=== PATIENT | female | born 1950 | race Caucasian/White ===

== ENCOUNTER → 2016-10-26 | Outpatient (CLI) | payer OTHER ==
[~2016-10-26] MED LIST: ACYCLOVIR800 MG PO; AMOXICILLIN500 M2 PO; ASMANEX TW110 MCG/AC INH; AZMANEX; CELEXA20 MG; CIPRO500 MG PO; DAILY VITE1 TA1; DAYPRO600 M1 PO; DOXYCYCLINE MO100 MG; FLEXERIL10 MG PO; IBUPROFEN800 MG; KEFLEX500 MG PO; METFORMIN500 MG; METFORMIN500 MG PO; METOCLOPRAMIDE H5 M1 PO; MOTRIN800 MG PO; OYSTER SHELL; PREDNISONE20 M1 PO; PROAIR HFA0.09 MG/AC; Phenergan25 MG PO; ROBAXIN750 MG PO; ROBITUSSIN DM 105 ML PO; SENNA PLUS 50 M1 TAB; SIMVASTATIN20 MG; SINGULAIR10 MG; TRAMADOL HCL50 MG PO; TYLENOL EXTRA500 M1; VERAPAMIL ER240 MG; VICODIN 5/500 505 MG PO; VITAMIN D32000 I1; VOLTAREN50 M1 PO; XANAX0.25 MG; XANAX0.25 MG PO; ZITHROMAX Z PA250 MG PO; [UNRECOGNIZED DRUG - CODE]
== END | disposition home or self-care (01) ==
LOC: RAD 15:32
DX: M81.0 Age-related osteoporosis without current pathological fracture (principal); M79.642 Pain in left hand

== ENCOUNTER → 2016-12-31 | Outpatient (CLI) | payer OTHER | END | disposition home or self-care (01) | LOC: MAMMO 08:09 | DX: Z12.31 Encounter for screening mammogram for malignant neoplasm of breast (principal) ==

== ENCOUNTER → 2017-04-16 | Outpatient (CLI) | payer OTHER | END | disposition home or self-care (01) | LOC: RAD 15:38 | DX: M25.561 Pain in right knee (principal) ==

== ENCOUNTER 2017-10-02 20:37 | Emergency (ER) | payer OTHER ==
[~2017-10-02] VITALS: Ht 160 cm; Wt 68.0 kg
[2017-10-02] MEDS ORDERED: ROBAXIN500 M1 PO (22:40)
[2017-10-02] MEDS ORDERED: MEDROL DOSEPAK4 MG PO (22:40)
== END 2017-10-02 22:39 | disposition home or self-care (01) ==
LOC: ED 20:37
DX: M50.31 Other cervical disc degeneration, high cervical region (principal); Z87.442 Personal history of urinary calculi; Z90.49 Acquired absence of other specified parts of digestive tract; Z88.0 Allergy status to penicillin; Z88.2 Allergy status to sulfonamides; Z79.899 Other long term (current) drug therapy

== ENCOUNTER → 2018-01-02 | Outpatient (CLI) | payer OTHER ==
[~2018-01-02] MED LIST changes: +MEDROL DOSEPAK4 MG PO; +ROBAXIN500 M1 PO
== END | disposition home or self-care (01) ==
LOC: MAMMO 12-18 07:20
DX: Z12.31 Encounter for screening mammogram for malignant neoplasm of breast (principal)

== ENCOUNTER → 2018-11-04 | Outpatient (CLI) | payer OTHER ==
[~2018-11-04] MED LIST changes: +BAYER ASPIRIN C81 MG PO; +LIPITOR20 MG PO
== END | disposition home or self-care (01) ==
LOC: US 14:27
DX: N94.9 Unspecified condition associated with female genital organs and menstrual cycle (principal)

== ENCOUNTER 2019-11-10 22:41 | Emergency (ER) | payer OTHER ==
[~2019-11-10] VITALS: Ht 160 cm; Wt 63.5 kg
== END 2019-11-11 00:30 | disposition home or self-care (01) ==
LOC: ED 22:41
DX: S62.20 Unspecified fracture of first metacarpal bone (principal); J45.909 Unspecified asthma, uncomplicated; E11.9 Type 2 diabetes mellitus without complications; I10 Essential (primary) hypertension; E78.00 Pure hypercholesterolemia, unspecified; K21.9 Gastro-esophageal reflux disease without esophagitis; Z88.0 Allergy status to penicillin; Z88.2 Allergy status to sulfonamides; Z91.013 Allergy to seafood; Z91.040 Latex allergy status; Z79.899 Other long term (current) drug therapy; Z79.82 Long term (current) use of aspirin; Z90.49 Acquired absence of other specified parts of digestive tract; Z87.442 Personal history of urinary calculi; X58.XXXS Exposure to other specified factors, sequela

== ENCOUNTER → 2019-11-19 | Outpatient (CLI) | payer OTHER | END | disposition home or self-care (01) | LOC: MAMMO 09:46 | DX: Z12.31 Encounter for screening mammogram for malignant neoplasm of breast (principal) ==

== ENCOUNTER 2019-12-11 23:07 | Emergency (ER) | payer OTHER ==
[~2019-12-11] VITALS: Ht 160 cm; Wt 63.5 kg
[2019-12-12] MEDS ORDERED: Motrin,Rufen400 MG PO (00:39)
[2019-12-12] MEDS ORDERED: CYCLOBENZAPRINE5 M3 PO (00:39)
== END 2019-12-12 00:59 | disposition home or self-care (01) ==
LOC: ED 23:07
DX: S39.012A Strain of muscle, fascia and tendon of lower back, initial encounter (principal); J45.909 Unspecified asthma, uncomplicated; I10 Essential (primary) hypertension; E11.9 Type 2 diabetes mellitus without complications; E78.00 Pure hypercholesterolemia, unspecified; K21.9 Gastro-esophageal reflux disease without esophagitis; Z88.0 Allergy status to penicillin; Z88.2 Allergy status to sulfonamides; Z91.013 Allergy to seafood; Z91.040 Latex allergy status; Z79.899 Other long term (current) drug therapy; Z79.82 Long term (current) use of aspirin; Z90.49 Acquired absence of other specified parts of digestive tract; X50.0XXA Overexertion from strenuous movement or load, initial encounter; Y93.89 Activity, other specified; Y92.69 Other specified industrial and construction area as the place of occurrence of the external cause; Y99.8 Other external cause status

== ENCOUNTER → 2020-05-06 | Outpatient (CLI) | payer OTHER ==
[~2020-05-06] MED LIST changes: +CYCLOBENZAPRINE5 M3 PO; +Motrin,Rufen400 MG PO
== END | disposition home or self-care (01) ==
LOC: US 15:00
DX: M79.89 Other specified soft tissue disorders (principal)

== ENCOUNTER 2020-07-13 15:21 | Emergency (ER) | payer OTHER ==
[~2020-07-13] VITALS: Ht 162.5 cm; Wt 66.2 kg
[2020-07-13] MEDS ORDERED: IBUPROFEN600 MG PO (15:55)
[2020-07-13] MEDS ORDERED: DOXYCYCLINE100 M3 PO (15:55)
== END 2020-07-13 16:15 | disposition home or self-care (01) ==
LOC: ED 15:21
DX: L02.11 Cutaneous abscess of neck (principal); Z88.0 Allergy status to penicillin; Z88.2 Allergy status to sulfonamides; Z91.013 Allergy to seafood; Z91.040 Latex allergy status; Z79.899 Other long term (current) drug therapy; Z79.82 Long term (current) use of aspirin

== ENCOUNTER → 2021-02-16 | Outpatient (CLI) | payer OTHER ==
[~2021-02-16] MED LIST changes: +DOXYCYCLINE100 M3 PO; +IBUPROFEN600 MG PO
== END | disposition home or self-care (01) ==
LOC: MAMMO 11:30
PROVIDERS: ATTEND Internal Medicine Nephrology
DX: Z12.31 Encounter for screening mammogram for malignant neoplasm of breast (principal); N81.89 Other female genital prolapse

== ENCOUNTER → 2021-03-09 | Outpatient (CLI) | payer OTHER ==
[~2021-03-09] MED LIST changes: +BUDESONIDE-FO10.2 G1 INH; -CELEXA20 MG; +CELEXA20 MG PO; +GLUCOPHAGE500 M1 PO; +HYDROCODONE-AC1 EAC1 PO; -METFORMIN500 MG; +OMEPRAZOLE20 M2 PO; +OS-CAL 500+D31 EACH PO; +PROVENTIL HFA6.7 GM INH; +SENNA-S 8.6-501 EACH PO; +SINGULAIR10 M1 PO; -SINGULAIR10 MG; +VERAPAMIL HCL120 M1 PO; -VITAMIN D32000 I1; +VITAMIN D350 MCG PO
[2021-03-09 17:43] LABS: BASO % 0.5 % (0.0-1.0); EOS # 0.1 10*3/uL (0.0-0.4); EOS % 1.8 % (1.0-4.0); HEMATOCRIT 39.6 % (37.0-47.0); LYMPH % 38.6 % (27.0-41.0); MEAN CELL VOLUME 91.5 fl (81.0-99.0); MEAN CORPUSCULAR HGB 29.3 pg (27.0-31.0); MEAN CORPUSCULAR HGB CONC 32.1 g/dl (33.0-37.0); MEAN PLATELET VOLUME 8.5 fl (9.6-12.3); MONO # 0.8 10*3/uL (0.1-1.0); MONO % 10.1 % (3.0-9.0); NEUT # 3.7 10*3/uL (2.3-7.9); NEUT % 48.9 % (47.0-73.0); PLATELET COUNT AUTOMATED 207 10*3/uL (130-400); RED BLOOD COUNT 4.33 10*6/uL (4.10-5.10); WHITE BLOOD COUNT 7.7 10*3/uL (4.8-10.8)
[2021-03-09 17:44] LABS: BILIRUBIN Negative (Negative); BLOOD Negative (Negative); CLARITY Clear (Clear); COLOR Yellow (Yellow); GLUCOSE Negative (Negative); KETONE Negative (Negative); LEUKO ESTERASE 1+ (Negative); NITRITE Negative (Negative); PH 6.5 (4.5-8.0); SPECIFIC GRAVITY <= 1.005 (1.001-1.030); UROBILINOGEN 0.2 E.U./dl (0.0-1.0)
[2021-03-09 18:12] LABS: ALBUMIN 3.7 gm/dl (3.1-4.5); ALKALINE PHOSPHATASE 98 U/L (45-117); BUN 15 mg/dl (7-24); CHLORIDE 103 mmol/L (98-107); CREATININE 0.63 mg/dL (0.55-1.02); SGOT/AST 18 IU/L (3-35); SGPT/ALT 19 U/L (12-78); SODIUM 139 mmol/L (136-145)
== END | disposition home or self-care (01) ==
LOC: LAB 15:27 → US 15:30
PROVIDERS: ATTEND Urology
DX: I10 Essential (primary) hypertension (principal); N39.0 Urinary tract infection, site not specified; N28.1 Cyst of kidney, acquired; N81.4 Uterovaginal prolapse, unspecified

== ENCOUNTER 2021-03-11 21:33 | Inpatient (IN) | payer OTHER ==
[~2021-03-11] VITALS: Ht 160 cm; Wt 70.3 kg
[~2021-03-11 21:33] MED LIST changes: -BUDESONIDE-FO10.2 G1 INH; -HYDROCODONE-AC1 EAC1 PO; -OMEPRAZOLE20 M2 PO; -OS-CAL 500+D31 EACH PO; -PROVENTIL HFA6.7 GM INH; -SENNA-S 8.6-501 EACH PO; -VERAPAMIL HCL120 M1 PO
[2021-03-11 21:42] VITALS: BP 148/87
[2021-03-12 02:45] VITALS: BP 140/80
[2021-03-12 03:09] VITALS: BP 144/75
[2021-03-12] MEDS ORDERED: BUDESONIDE-FO10.2 G1 INH (03:43)
[2021-03-12 06:33] LABS: BASO % 0.3 % (0.0-1.0); EOS % 0.4 % (1.0-4.0); HEMATOCRIT 35.7 % (37.0-47.0); LYMPH % 18.7 % (27.0-41.0); MEAN CELL VOLUME 89.3 fl (81.0-99.0); MEAN CORPUSCULAR HGB 29.3 pg (27.0-31.0); MEAN CORPUSCULAR HGB CONC 32.8 g/dl (33.0-37.0); MEAN PLATELET VOLUME 9.1 fl (9.6-12.3); MONO # 0.8 10*3/uL (0.1-1.0); MONO % 7.5 % (3.0-9.0); NEUT # 7.6 10*3/uL (2.3-7.9); NEUT % 72.7 % (47.0-73.0); PLATELET COUNT AUTOMATED 190 10*3/uL (130-400); RED CELL DISTRI WIDTH 12.1 % (0-14.5); WHITE BLOOD COUNT 10.5 10*3/uL (4.8-10.8)
[2021-03-12 06:56] LABS: BUN 12 mg/dl (7-24); CHLORIDE 108 mmol/L (98-107); POTASSIUM 3.8 mmol/L (3.5-5.1); SODIUM 140 mmol/L (136-145)
[2021-03-12 08:00] VITALS: BP 123/71
[2021-03-12 12:00] VITALS: BP 124/73
[2021-03-12] MEDS ORDERED: PROVENTIL HFA6.7 GM INH (13:24)
[2021-03-12] MEDS ORDERED: OS-CAL 500+D31 EACH PO (13:26)
[2021-03-12] MEDS ORDERED: SENNA-S 8.6-501 EACH PO (13:28)
[2021-03-12] MEDS ORDERED: VERAPAMIL HCL120 M1 PO (13:32)
[2021-03-12] MEDS ORDERED: OMEPRAZOLE20 M2 PO (13:33)
[2021-03-12 16:00] VITALS: BP 124/73
[2021-03-12 20:00] VITALS: BP 123/67
[2021-03-13] VITALS: BP 134/70
[2021-03-13 08:00] VITALS: BP 116/68
[2021-03-13 12:00] VITALS: BP 114/58
[2021-03-13 16:00] VITALS: BP 114/58
[2021-03-13 20:00] VITALS: BP 136/74
[2021-03-13 21:26] LABS: BILIRUBIN Negative (Negative); BLOOD Negative (Negative); CLARITY Clear (Clear); COLOR Yellow (Yellow); GLUCOSE Negative (Negative); KETONE Trace (Negative); LEUKO ESTERASE 2+ (Negative); NITRITE Negative (Negative); PH 5.5 (4.5-8.0); SPECIFIC GRAVITY 1.025 (1.001-1.030)
[2021-03-13 21:51] LABS: BACTERIA TRACE; EPITHELIAL CELLS 16-20; MUCOUS 2+; WBC 41-50 wbc/hpf (0-5)
[2021-03-14] VITALS: BP 122/69
[2021-03-14 06:15] LABS: BASO % 0.2 % (0.0-1.0); EOS # 0.1 10*3/uL (0.0-0.4); EOS % 0.6 % (1.0-4.0); HEMATOCRIT 37.3 % (37.0-47.0); LYMPH # 2.7 10*3/uL (1.3-4.4); LYMPH % 25.5 % (27.0-41.0); MEAN CELL VOLUME 91.9 fl (81.0-99.0); MEAN CORPUSCULAR HGB 29.3 pg (27.0-31.0); MEAN CORPUSCULAR HGB CONC 31.9 g/dl (33.0-37.0); MEAN PLATELET VOLUME 9.1 fl (9.6-12.3); MONO # 1.1 10*3/uL (0.1-1.0); NEUT # 6.5 10*3/uL (2.3-7.9); NEUT % 62.4 % (47.0-73.0); PLATELET COUNT AUTOMATED 185 10*3/uL (130-400); RED BLOOD COUNT 4.06 10*6/uL (4.10-5.10); RED CELL DISTRI WIDTH 12.4 % (0-14.5); WHITE BLOOD COUNT 10.4 10*3/uL (4.8-10.8)
[2021-03-14 06:50] LABS: ALBUMIN 2.9 gm/dl (3.1-4.5); ALKALINE PHOSPHATASE 85 U/L (45-117); BUN 12 mg/dl (7-24); CHLORIDE 104 mmol/L (98-107); CREATININE 0.59 mg/dL (0.55-1.02); SGOT/AST 13 IU/L (3-35); SGPT/ALT 13 U/L (12-78); SODIUM 138 mmol/L (136-145); TOTAL PROTEIN 6.7 gm/dL (6.4-8.2)
[2021-03-14] MEDS ORDERED: HYDROCODONE-AC1 EAC1 PO (07:45)
[2021-03-14 08:00] VITALS: BP 120/67
[2021-03-14 12:00] VITALS: BP 120/70
[2021-03-14 16:00] VITALS: BP 132/73
[2021-03-14 20:00] VITALS: BP 112/70
[2021-03-15] VITALS: BP 120/71
[2021-03-15 06:04] LABS: ALBUMIN 2.9 gm/dl (3.1-4.5); BUN 14 mg/dl (7-24); CHLORIDE 102 mmol/L (98-107); CREATININE 0.67 mg/dL (0.55-1.02); POTASSIUM 4.1 mmol/L (3.5-5.1); SGOT/AST 13 IU/L (3-35); SGPT/ALT 14 U/L (12-78); SODIUM 137 mmol/L (136-145); TOTAL PROTEIN 6.9 gm/dL (6.4-8.2)
[2021-03-15 06:05] LABS: ALKALINE PHOSPHATASE 81 U/L (45-117)
[2021-03-15 06:20] LABS: BASO % 0.2 % (0.0-1.0); EOS % 0.3 % (1.0-4.0); HEMATOCRIT 36.2 % (37.0-47.0); LYMPH # 2.4 10*3/uL (1.3-4.4); LYMPH % 24.7 % (27.0-41.0); MEAN CELL VOLUME 92.3 fl (81.0-99.0); MEAN CORPUSCULAR HGB 29.3 pg (27.0-31.0); MEAN CORPUSCULAR HGB CONC 31.8 g/dl (33.0-37.0); MEAN PLATELET VOLUME 9.3 fl (9.6-12.3); MONO # 0.9 10*3/uL (0.1-1.0); MONO % 8.9 % (3.0-9.0); NEUT # 6.5 10*3/uL (2.3-7.9); NEUT % 65.6 % (47.0-73.0); PLATELET COUNT AUTOMATED 193 10*3/uL (130-400); RED BLOOD COUNT 3.92 10*6/uL (4.10-5.10); RED CELL DISTRI WIDTH 12.5 % (0-14.5); WHITE BLOOD COUNT 9.8 10*3/uL (4.8-10.8)
[2021-03-15 08:00] VITALS: BP 118/65
[2021-03-15 12:00] VITALS: BP 118/66
[2021-03-15 16:00] VITALS: BP 130/73
[2021-03-15 20:05] VITALS: BP 133/76
[2021-03-16] VITALS: BP 128/63
[2021-03-16 06:26] LABS: BASO % 0.3 % (0.0-1.0); EOS # 0.1 10*3/uL (0.0-0.4); HEMATOCRIT 34.9 % (37.0-47.0); LYMPH # 1.8 10*3/uL (1.3-4.4); LYMPH % 20.1 % (27.0-41.0); MEAN CELL VOLUME 91.8 fl (81.0-99.0); MEAN CORPUSCULAR HGB 29.2 pg (27.0-31.0); MEAN CORPUSCULAR HGB CONC 31.8 g/dl (33.0-37.0); MEAN PLATELET VOLUME 9.3 fl (9.6-12.3); MONO # 0.9 10*3/uL (0.1-1.0); MONO % 9.7 % (3.0-9.0); NEUT # 6.3 10*3/uL (2.3-7.9); NEUT % 68.8 % (47.0-73.0); PLATELET COUNT AUTOMATED 202 10*3/uL (130-400); RED CELL DISTRI WIDTH 12.5 % (0-14.5); WHITE BLOOD COUNT 9.2 10*3/uL (4.8-10.8)
[2021-03-16 06:35] LABS: ALBUMIN 2.5 gm/dl (3.1-4.5); ALKALINE PHOSPHATASE 78 U/L (45-117); BUN 13 mg/dl (7-24); CHLORIDE 103 mmol/L (98-107); CREATININE 0.47 mg/dL (0.55-1.02); POTASSIUM 4.1 mmol/L (3.5-5.1); SGOT/AST 12 IU/L (3-35); SGPT/ALT 14 U/L (12-78); SODIUM 138 mmol/L (136-145); TOTAL PROTEIN 6.6 gm/dL (6.4-8.2)
[2021-03-16 08:00] VITALS: BP 134/75
[2021-03-16 12:00] VITALS: BP 109/64
[2021-03-16 16:00] VITALS: BP 125/63
[2021-03-16 20:00] VITALS: BP 115/69
[2021-03-17] VITALS: BP 125/66
[2021-03-17 05:56] LABS: BASO % 0.2 % (0.0-1.0); EOS # 0.1 10*3/uL (0.0-0.4); EOS % 0.5 % (1.0-4.0); LYMPH # 1.9 10*3/uL (1.3-4.4); LYMPH % 19.7 % (27.0-41.0); MEAN CELL VOLUME 90.4 fl (81.0-99.0); MEAN CORPUSCULAR HGB CONC 32.1 g/dl (33.0-37.0); MEAN PLATELET VOLUME 9.1 fl (9.6-12.3); MONO # 0.9 10*3/uL (0.1-1.0); MONO % 9.3 % (3.0-9.0); NEUT # 6.6 10*3/uL (2.3-7.9); NEUT % 69.8 % (47.0-73.0); PLATELET COUNT AUTOMATED 221 10*3/uL (130-400); RED BLOOD COUNT 3.65 10*6/uL (4.10-5.10); RED CELL DISTRI WIDTH 12.4 % (0-14.5); WHITE BLOOD COUNT 9.4 10*3/uL (4.8-10.8)
[2021-03-17 06:10] LABS: BUN 16 mg/dl (7-24); CHLORIDE 103 mmol/L (98-107); CREATININE 0.47 mg/dL (0.55-1.02); POTASSIUM 4.1 mmol/L (3.5-5.1); SODIUM 137 mmol/L (136-145)
[2021-03-17 08:00] VITALS: BP 124/70
[2021-03-17 12:00] VITALS: BP 126/69
[2021-03-17 16:00] VITALS: BP 105/56
[2021-03-17 20:00] VITALS: BP 112/60
[2021-03-18] VITALS: BP 115/71
[2021-03-18 08:05] VITALS: BP 111/69
[2021-03-18 12:00] VITALS: BP 91/54
[2021-03-18 16:00] VITALS: BP 113/67
[2021-03-18 20:00] VITALS: BP 121/81
[2021-03-19] VITALS: BP 109/67
[2021-03-19 08:00] VITALS: BP 127/68
[2021-03-19 12:00] VITALS: BP 130/70
[2021-03-19 16:00] VITALS: BP 113/72
[2021-03-19 20:00] VITALS: BP 108/66
[2021-03-20] VITALS: BP 108/67
[2021-03-20 08:00] VITALS: BP 106/66
[2021-03-20 12:00] VITALS: BP 110/66
[2021-03-20 16:00] VITALS: BP 117/67
[2021-03-20 20:00] VITALS: BP 114/70
[2021-03-21] VITALS: BP 122/62
[2021-03-21 08:00] VITALS: BP 113/67
[2021-03-21 12:00] VITALS: BP 103/71
[2021-03-21 16:00] VITALS: BP 148/84
== END 2021-03-21 18:52 | disposition home health service (06) | DRG 342 ==
LOC: ED 21:33 → 5E 03-12 00:29 → EDHOLD 03-12 00:29 → 5E 03-12 02:48
PROVIDERS: Internal Medicine; Internal Medicine Nephrology; Social Worker Clinical; ADMIT Internal Medicine; ATTEND Internal Medicine
DX: S82.045A Nondisplaced comminuted fracture of left patella, initial encounter for closed fracture (principal); Z68.27 Body mass index [BMI] 27.0-27.9, adult; E78.2 Mixed hyperlipidemia; F33.0 Major depressive disorder, recurrent, mild; F51.01 Primary insomnia; F41.1 Generalized anxiety disorder; M19.91 Primary osteoarthritis, unspecified site; I10 Essential (primary) hypertension; D64.9 Anemia, unspecified; D72.821 Monocytosis (symptomatic); D72.810 Lymphocytopenia; J98.59 Other diseases of mediastinum, not elsewhere classified; K44.9 Diaphragmatic hernia without obstruction or gangrene; E11.65 Type 2 diabetes mellitus with hyperglycemia; N30.00 Acute cystitis without hematuria; K21.9 Gastro-esophageal reflux disease without esophagitis; K57.90 Diverticulosis of intestine, part unspecified, without perforation or abscess without bleeding; W01.0XXA Fall on same level from slipping, tripping and stumbling without subsequent striking against object, initial encounter; Z90.49 Acquired absence of other specified parts of digestive tract; Q89.2 Congenital malformations of other endocrine glands; Z88.0 Allergy status to penicillin; Z88.2 Allergy status to sulfonamides; Z91.040 Latex allergy status; Z91.013 Allergy to seafood; Z87.442 Personal history of urinary calculi; Z82.49 Family history of ischemic heart disease and other diseases of the circulatory system; Z83.79 Family history of other diseases of the digestive system; Y93.89 Activity, other specified; Y92.512 Supermarket, store or market as the place of occurrence of the external cause; Y99.8 Other external cause status; Z20.822 Contact with and (suspected) exposure to COVID-19; E44.0 Moderate protein-calorie malnutrition

== ENCOUNTER → 2021-04-05 | Outpatient (CLI) | payer OTHER ==
[~2021-04-05] MED LIST changes: +BUDESONIDE-FO10.2 G1 INH; +HYDROCODONE-AC1 EAC1 PO; +OMEPRAZOLE20 M2 PO; +OS-CAL 500+D31 EACH PO; +PROVENTIL HFA6.7 GM INH; +SENNA-S 8.6-501 EACH PO; +VERAPAMIL HCL120 M1 PO
== END | disposition home or self-care (01) ==
LOC: RAD 00:34
PROVIDERS: ATTEND Orthopaedic Surgery
DX: S82.045D Nondisplaced comminuted fracture of left patella, subsequent encounter for closed fracture with routine healing (principal); X58.XXXD Exposure to other specified factors, subsequent encounter

== ENCOUNTER → 2021-04-26 | Outpatient (CLI) | payer OTHER | END | disposition home or self-care (01) | LOC: ORTHO 01:58 | PROVIDERS: ATTEND Orthopaedic Surgery | DX: S82.045D Nondisplaced comminuted fracture of left patella, subsequent encounter for closed fracture with routine healing (principal); M17.12 Unilateral primary osteoarthritis, left knee; R22.42 Localized swelling, mass and lump, left lower limb; X58.XXXD Exposure to other specified factors, subsequent encounter ==

== ENCOUNTER → 2021-06-02 | Outpatient (CLI) | payer OTHER | END | disposition home or self-care (01) | LOC: ORTHO 01:49 | PROVIDERS: ATTEND Orthopaedic Surgery | DX: S82.045D Nondisplaced comminuted fracture of left patella, subsequent encounter for closed fracture with routine healing (principal); M17.12 Unilateral primary osteoarthritis, left knee; X58.XXXD Exposure to other specified factors, subsequent encounter ==

== ENCOUNTER → 2022-02-19 | Outpatient (CLI) | payer OTHER | END | disposition home or self-care (01) | LOC: MAMMO 10:30 | PROVIDERS: ATTEND Internal Medicine Nephrology | DX: Z12.31 Encounter for screening mammogram for malignant neoplasm of breast (principal) ==

== ENCOUNTER 2022-04-07 17:40 | Emergency (ER) | payer OTHER ==
[~2022-04-07] VITALS: Ht 160 cm; Wt 70.8 kg
[2022-04-07] MEDS ORDERED: BENADRYL ALLERG25 M5 PO (19:27)
[2022-04-07] MEDS ORDERED: PREDNISONE20 M1 PO (19:27)
== END 2022-04-07 19:47 | disposition home or self-care (01) ==
LOC: ED 17:40
DX: L30.8 Other specified dermatitis (principal)

== ENCOUNTER → 2022-04-18 | Outpatient (CLI) | payer OTHER ==
[~2022-04-18] MED LIST changes: +BENADRYL ALLERG25 M5 PO
== END | disposition home or self-care (01) ==
LOC: US 14:00
PROVIDERS: ATTEND Internal Medicine Nephrology
DX: R22.31 Localized swelling, mass and lump, right upper limb (principal)

== ENCOUNTER → 2022-05-07 | Outpatient (CLI) | payer OTHER | END | disposition home or self-care (01) | LOC: ORTHO 00:49 | PROVIDERS: ATTEND Orthopaedic Surgery | DX: S82.045D Nondisplaced comminuted fracture of left patella, subsequent encounter for closed fracture with routine healing (principal); M17.12 Unilateral primary osteoarthritis, left knee; X58.XXXD Exposure to other specified factors, subsequent encounter ==

== ENCOUNTER → 2022-07-09 | Outpatient (CLI) | payer OTHER | END | disposition home or self-care (01) | LOC: RAD 07-02 09:27 | PROVIDERS: ATTEND Internal Medicine Nephrology | DX: M17.12 Unilateral primary osteoarthritis, left knee (principal); Z78.0 Asymptomatic menopausal state ==

== ENCOUNTER → 2023-03-11 | Outpatient (CLI) | payer OTHER | END | disposition home or self-care (01) | LOC: MAMMO 08:00 | PROVIDERS: ATTEND Internal Medicine | DX: Z12.31 Encounter for screening mammogram for malignant neoplasm of breast (principal) ==

== ENCOUNTER 2024-11-01 15:21 | Emergency (ER) | payer OTHER ==
[~2024-11-01] VITALS: Ht 160 cm; Wt 63.5 kg
[2024-11-01] MEDS ORDERED: IBUPROFEN 100 MG/5 ML UDC PO ONE (16:25)
[2024-11-01] MEDS ORDERED: Acetaminophen/Hydrocodone Bi 3 TAB PACK PO ONE (17:40)
== END 2024-11-01 17:38 | disposition home or self-care (01) ==
LOC: ED 15:21
DX: S93.602A Unspecified sprain of left foot, initial encounter (principal); J45.909 Unspecified asthma, uncomplicated; E11.9 Type 2 diabetes mellitus without complications; I10 Essential (primary) hypertension; F32.A Depression, unspecified; F41.9 Anxiety disorder, unspecified; E78.00 Pure hypercholesterolemia, unspecified; K21.9 Gastro-esophageal reflux disease without esophagitis; Z88.2 Allergy status to sulfonamides; Z88.0 Allergy status to penicillin; Z91.013 Allergy to seafood; Z91.040 Latex allergy status; Z88.8 Allergy status to other drugs, medicaments and biological substances; Z90.49 Acquired absence of other specified parts of digestive tract; Z98.890 Other specified postprocedural states; W10.9XXA Fall (on) (from) unspecified stairs and steps, initial encounter; Y93.89 Activity, other specified; Y92.89 Other specified places as the place of occurrence of the external cause; Y99.8 Other external cause status

== ENCOUNTER 2024-12-12 23:39 | Emergency (ER) | payer OTHER ==
[2024-12-13] MEDS ORDERED: TRAMADOL HCL50 MG PO (01:34)
[2024-12-13] MEDS ORDERED: traMADol Hydrochloride 50 MG TAB PO ONE (01:35)
== END 2024-12-13 01:48 | disposition home or self-care (01) ==
LOC: ED 23:39
DX: S93.491A Sprain of other ligament of right ankle, initial encounter (principal); J45.909 Unspecified asthma, uncomplicated; E11.9 Type 2 diabetes mellitus without complications; I10 Essential (primary) hypertension; E78.00 Pure hypercholesterolemia, unspecified; K21.9 Gastro-esophageal reflux disease without esophagitis; F32.A Depression, unspecified; F41.9 Anxiety disorder, unspecified; Z79.82 Long term (current) use of aspirin; Z79.899 Other long term (current) drug therapy; Z88.2 Allergy status to sulfonamides; Z91.040 Latex allergy status; Z88.0 Allergy status to penicillin; Z91.013 Allergy to seafood; Z90.49 Acquired absence of other specified parts of digestive tract; Z98.890 Other specified postprocedural states; X58.XXXA Exposure to other specified factors, initial encounter; Y93.89 Activity, other specified; Y92.89 Other specified places as the place of occurrence of the external cause; Y99.8 Other external cause status

== ENCOUNTER → 2025-03-17 | Outpatient (CLI) | payer OTHER | END | disposition home or self-care (01) | LOC: ORTHO 01:25 | PROVIDERS: ATTEND Orthopaedic Surgery | DX: S82.841D Displaced bimalleolar fracture of right lower leg, subsequent encounter for closed fracture with routine healing (principal); S82.831D Other fracture of upper and lower end of right fibula, subsequent encounter for closed fracture with routine healing; M25.471 Effusion, right ankle; M79.89 Other specified soft tissue disorders; X58.XXXD Exposure to other specified factors, subsequent encounter ==

== ENCOUNTER → 2025-04-14 | Outpatient (CLI) | payer OTHER | END | disposition home or self-care (01) | LOC: ORTHO 02:25 | PROVIDERS: ATTEND Orthopaedic Surgery | DX: S82.841A Displaced bimalleolar fracture of right lower leg, initial encounter for closed fracture (principal); S82.51XK Displaced fracture of medial malleolus of right tibia, subsequent encounter for closed fracture with nonunion; M79.89 Other specified soft tissue disorders; X58.XXXD Exposure to other specified factors, subsequent encounter; X58.XXXA Exposure to other specified factors, initial encounter; Y93.89 Activity, other specified; Y92.89 Other specified places as the place of occurrence of the external cause; Y99.8 Other external cause status ==

== ENCOUNTER → 2025-05-26 | Outpatient (CLI) | payer OTHER | LOC: ORTHO 01:39 | PROVIDERS: ATTEND Orthopaedic Surgery | DX: S82.841A Displaced bimalleolar fracture of right lower leg, initial encounter for closed fracture (principal); M19.071 Primary osteoarthritis, right ankle and foot; M79.89 Other specified soft tissue disorders; X58.XXXA Exposure to other specified factors, initial encounter; Y93.89 Activity, other specified; Y92.89 Other specified places as the place of occurrence of the external cause; Y99.8 Other external cause status ==

== ENCOUNTER → 2025-06-11 | Outpatient (CLI) | payer OTHER | END | disposition home or self-care (01) | LOC: RAD 13:30 | PROVIDERS: ATTEND Orthopaedic Surgery | DX: M81.0 Age-related osteoporosis without current pathological fracture (principal) ==

== ENCOUNTER 2025-08-26 13:56 | Emergency (ER) | payer OTHER ==
[~2025-08-26] VITALS: Ht 160 cm; Wt 67.1 kg
[2025-08-26] MEDS ORDERED: Dicyclomine Hydrochloride 20 MG/10 ML OSYR PO STA (14:20)
[2025-08-26] MEDS ORDERED: MG-AL HYDROXIDE/SIMETICONE 30 ML UDC PO STA (14:20)
== END 2025-08-26 15:14 | disposition home or self-care (01) ==
LOC: ED 13:56
DX: K20.90 Esophagitis, unspecified without bleeding (principal); Z88.0 Allergy status to penicillin; Z88.2 Allergy status to sulfonamides; Z91.013 Allergy to seafood; Z91.040 Latex allergy status; Z88.8 Allergy status to other drugs, medicaments and biological substances; Z79.899 Other long term (current) drug therapy; Z79.82 Long term (current) use of aspirin; Z98.890 Other specified postprocedural states; Z90.49 Acquired absence of other specified parts of digestive tract; Z87.442 Personal history of urinary calculi

== ENCOUNTER 2025-09-04 13:26 | Emergency (ER) | payer OTHER ==
[~2025-09-04] VITALS: Ht 160 cm; Wt 67.1 kg
[2025-09-04] MEDS ORDERED: COLACE100 MG PO (16:48)
== END 2025-09-04 17:07 | disposition home or self-care (01) ==
LOC: ED 13:26
DX: K59.00 Constipation, unspecified (principal); J45.909 Unspecified asthma, uncomplicated; E11.9 Type 2 diabetes mellitus without complications; I10 Essential (primary) hypertension; F32.A Depression, unspecified; F41.9 Anxiety disorder, unspecified; E78.00 Pure hypercholesterolemia, unspecified; K21.9 Gastro-esophageal reflux disease without esophagitis; Z87.442 Personal history of urinary calculi; Z98.890 Other specified postprocedural states; Z90.49 Acquired absence of other specified parts of digestive tract; Z88.0 Allergy status to penicillin; Z88.2 Allergy status to sulfonamides; Z88.8 Allergy status to other drugs, medicaments and biological substances; Z91.013 Allergy to seafood; Z91.040 Latex allergy status

== ENCOUNTER → 2025-09-27 | Outpatient (CLI) | payer OTHER ==
[~2025-09-27] MED LIST changes: +COLACE100 MG PO
== END | disposition home or self-care (01) ==
LOC: ORTHO 05:04
PROVIDERS: ATTEND Orthopaedic Surgery
DX: S82.841A Displaced bimalleolar fracture of right lower leg, initial encounter for closed fracture (principal); X58.XXXA Exposure to other specified factors, initial encounter; Y93.89 Activity, other specified; Y92.89 Other specified places as the place of occurrence of the external cause; Y99.8 Other external cause status